=== PATIENT | female | born 1990 | race American Indian/Alaskan Native ===

== ENCOUNTER 2019-08-19 00:40 | Outpatient (CLI) | payer MEDICAID ==
[2019-08-19 02:36] VITALS: BP 110/55
--- NOTE | 2019-08-19 03:35 | Ultrasound Report ---
ULTRASOUND BIOPHYSICAL PROFILE INDICATION / CLINICAL INFORMATION: Evaluate well-being COMPARISON: None available. FINDINGS: BREATHING MOVEMENT = 2 GROSS BODY MOVEMENT = 2 TONE = 2 QUALITATIVE AMNIOTIC FLUID VOLUME = 2 TOTAL BIOPHYSICAL SCORE = 11/01 AMNIOTIC FLUID INDEX (cm) = 8.5 PRESENTATION: Cephalic. HEART RATE (beats per minute): 131 IMPRESSION: 1. biophysical profile = 11/01 Signer Name: Cathy Montana MD Signed: 08/19/2019 3:31 AM Workstation Name: [id number]
== END 2019-08-19 03:38 | disposition home or self-care (01) ==
LOC: TRG 00:40 → APU 00:51 → TRG 03:38
PROVIDERS: ATTEND Obstetrics & Gynecology
DX: O26.893 Other specified pregnancy related conditions, third trimester (principal); Z3A.40 40 weeks gestation of pregnancy
CPT/HCPCS: 59025; 76815; 76819